=== PATIENT | female | born 1995 | race Caucasian/White ===

== ENCOUNTER 2019-02-23 10:39 | Day surgery (SDC) | payer BC ==
[2019-02-23] MEDS ORDERED: Ketorolac Tromethamine 30 MG/ML VIAL ONE (11:25)
[2019-02-23] MEDS ORDERED: Famotidine/PF 20 mg/2ml Vial ONE (12:19)
[2019-02-23] MEDS ORDERED: Meperidine HCl/PF 25 MG/ML VIAL ONE (12:19)
[2019-02-23] MEDS ORDERED: Fentanyl 100 MCG/2 ML VIAL ONE (12:19)
[2019-02-23] MEDS ORDERED: Bupivacaine HCl 0.5%/Epinephrine 1:200,000/PF 30 ml Vial ONE (12:26)
[2019-02-23] MEDS ORDERED: SUGAMMADEX SODIUM 200 MG/2 ML VIAL ONE (12:32)
--- NOTE | 2019-02-23 13:13 | HP ---
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 She is attending [employer]. She is from [place]. Her grandmother and future [id number] are here with her. The patient lives with her boyfriend in a town home. She developed diffuse abdominal pain yesterday while working, but was able to continue working. It localized to right lower quadrant. She presented to [facility] today. Ultrasound revealed tenderness over appendiceal area. CAT scan revealed appendicitis changes with inflammatory changes and dilated appendix. She is transferred to outpatient [facility] for laparoscopic appendectomy. ALLERGIES: NONE. TOBACCO: None. ALCOHOL: Occasional wine. PAST SURGICAL HISTORY: Tonsillectomy, nasal polyps removed. PAST MEDICAL HISTORY: Otherwise noncontributory. MEDICATIONS: None. PHYSICAL EXAMINATION: VITAL SIGNS: Weight 125 pounds or 57 kg, blood pressure 117/75, respiratory rate 16, and heart rate 75. HEAD, EARS, EYES, NOSE, AND THROAT: Unremarkable. LUNGS: Clear to auscultation. CARDIAC: Regular rate and rhythm without murmur or gallop. ABDOMEN: Soft. Tenderness in right lower quadrant with guarding and rebound. EXTREMITIES: Unremarkable. Positive Rovsing sign. LABORATORY DATA: White count 7.2, hemoglobin 12.3. CAT scan at [facility] reveals findings consistent with appendicitis. ASSESSMENT AND PLAN: Acute appendicitis. I recommend laparoscopic video appendectomy. Risks of infection, bleeding, visceral injury explained, she consents. Questions answered. Job ID: [id number]
[2019-02-23] MEDS ORDERED: PROPOFOL 200 MG/20 ML VIAL ONE (13:51)
[2019-02-23] MEDS ORDERED: Metoclopramide HCl 10 MG/2 ML VIAL ONE (13:51)
[2019-02-23] MEDS ORDERED: Lidocaine 1% PF 5 ML VIAL ONE (13:51)
[2019-02-23] MEDS ORDERED: Rocuronium Bromide 10 MG/ML (10ML VIAL) ONE (13:51)
[2019-02-23] MEDS ORDERED: Succinylcholine Chloride 20 MG/ML 10 ml SYRINGE FS ONE (13:51)
[2019-02-23] MEDS ORDERED: Ondansetron PF 4 MG/2 ML Vial ONE (13:51)
[2019-02-23] MEDS ORDERED: Dexamethasone 20 MG/5 ML VIAL ONE (13:51)
--- NOTE | 2019-02-23 20:05 | OP ---
DATE OF PROCEDURE: 02/23/2019 PREOPERATIVE DIAGNOSIS: Acute appendicitis. POSTOPERATIVE DIAGNOSIS: Acute appendicitis. PROCEDURE PERFORMED: Laparoscopic video appendectomy. ANESTHESIA: General, local 0.5% Marcaine with epinephrine 30 mL, total volume used. DESCRIPTION OF PROCEDURE: The patient was taken to the operating room, where under general anesthesia, Moss catheter placed at the beginning of the procedure, removed at the end. Abdomen was prepared with ChloraPrep and draped in routine fashion. Local anesthetic of 0.5% Marcaine with epinephrine was infiltrated in the skin and subcutaneous tissue about all port sites, total volume used 30 mL. Infraumbilical incision was made. Pneumoperitoneum to 15 mmHg was obtained with a Veress needle, replaced with a 5 port, laparoscope was inserted. Suprapubic incision was made. A 12 port was placed. Right lateral subcostal incision was made and a 5 port was placed. Appendix was acutely inflamed, early appendicitis. Mesoappendix was taken down with the LigaSure to the stump of the appendix dividing the base of the appendix at the cecal stump with Endo-ISABELLA blue load stapler. Stapled cecal stump was hemostatic after application of clips. Appendix was removed and submitted to Pathology. Irrigant and pneumoperitoneum were evacuated. All instruments were removed. Suprapubic fascia was approximated with 0 Vicryl and skin was approximated with interrupted subdermal 4-0 Monocryl and [place] glue applied. Job ID: [id number]
== END 2019-02-23 16:00 | disposition home or self-care (01) ==
LOC: SDC 10:39
PROVIDERS: ATTEND Specialist
PROC: 0DTJ4ZZ Resection of Appendix, Percutaneous Endoscopic Approach (ICD-10-PCS; principal; 2019-02-23)
DX: K35.80 Unspecified acute appendicitis (principal)
CPT/HCPCS: 88304; J0131; J0670; J1100; J1885; J2001; J2175; J2405; J2704; J2765; J3010; S0028